=== PATIENT | male | born 1975 | race Caucasian/White ===

== ENCOUNTER 2017-04-16 09:01 | Emergency (ER) | payer BC, OTHER ==
[2017-04-16] MEDS ORDERED: Lactated Ringers 1,000 ML IV ONE ×2 (09:05)
--- NOTE | 2017-04-16 09:19 | ERPHSYRPT ---
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 He felt light- headed, generally weak, and apparently passed out briefly. No seizure. No headache, chest pain, abd pain. No V/D. No N/T/W. No hx of this in the past. He feels somewhat better after drinking po fluids and 500ns bolus per EMs. Vitals and accu check ok per EMS. Pt has no injury. No neck or back pain. Timing/Duration: today Severity: moderate Allergies/Adverse Reactions: amoxicillin Allergy (Intermediate, Verified 04/16/17 09:03) Rash Home Medications: No Home Meds 1 [facility] UD 04/16/17 [History] Hx Tetanus, Diphtheria Vaccination/Date Given: Yes (2015) Hx Influenza Vaccination/Date Given: No Hx Pneumococcal Vaccination/Date Given: No Immunizations Up to Date: Yes - Review of Systems Constitutional: No Fever, No Chills Eyes: No Symptoms Ears, Nose, & Throat: No Symptoms Respiratory: No Dyspnea Cardiac: Syncope, No Chest Pain Abdominal/Gastrointestinal: No Abdominal Pain, No Nausea, No Vomiting, No Diarrhea Skin: No Rash Neurological: No Dizziness, No Focal Weakness, No Headache, No Parasthesia All Other Systems: Reviewed and Negative - Past Medical History Pertinent Past Medical History: No - Past Surgical History Past Surgical History: No - Social History Smoking Status: Never smoker Exposure to second hand smoke: No Drug Use: none Patient Lives Alone: Yes (works [employer]) - Nursing Vital Signs Nursing Vital Signs: Initial Vital Signs Temperature 98.3 F 04/16/17 09:07 Pulse Rate 70 04/16/17 09:07 Respiratory Rate 18 04/16/17 09:07 Blood Pressure 120/77 04/16/17 09:07 O2 Sat by Pulse Oximetry 97 04/16/17 09:07 Pain Scale Pain Intensity 0 - Physical Exam General Appearance: alert Eye Exam: PERRL/EOMI Ears, Nose, Throat Exam: dry mucous membranes Neck Exam: normal inspection, non-tender, supple Respiratory Exam: normal breath sounds, lungs clear Cardiovascular Exam: regular rate/rhythm, No murmur Gastrointestinal/Abdomen Exam: soft, No tenderness, No distention, No guarding Back Exam: normal inspection, normal range of motion Extremity Exam: normal inspection, normal range of motion Neurologic Exam: alert, oriented x 3, cooperative, sensation nml, No motor deficits Skin Exam: warm, dry, No rash SpO2 Interpretation: normal SpO2: 97 Oxygen Delivery: Room Air - Course Nursing assessment & vital signs reviewed: Yes EKG Interpreted by Me: RATE (98), Sinus Rhythm, NORMAL AXIS, NORMAL INTERVALS ( QTc 4040), NORMAL QRS, NORMAL ST-T Ordered Tests: Active Orders 24 hr Category Date Time Status Clean Catch Urine Specimen STAT Care 04/16/17 09:05 Active EKG-ER Only STAT Care 04/16/17 09:06 Active Gown/Disrobe Pt STAT Care 04/16/17 09:05 Active IV Insertion STAT Care 04/16/17 09:05 Active Orthostatic Vital Signs STAT Care 04/16/17 11:00 Active BLOOD CULTURE Stat Lab 04/16/17 10:10 Received CBC W DIFF Stat Lab 04/16/17 09:05 Completed CK-Creatinine Phosphokinase Stat Lab 04/16/17 09:05 Completed CMP Stat Lab 04/16/17 09:05 Completed Lactic Acid Stat Lab 04/16/17 10:03 Completed Manual Differential NC Stat Lab 04/16/17 09:05 Completed UA W/ MICROSCOPIC Stat Lab 04/16/17 10:00 Completed Urine Triage Profile Stat Lab 04/16/17 09:40 Completed VENOUS BLOOD GAS Urgent Lab 04/16/17 09:11 Completed Medication Summary Discontinued Medications Generic Name Dose Route Start Last Admin Trade Name Freq PRN Reason Stop Dose Admin Lactated Ringer's Confirm 04/16/17 09:05 Lactated Ringers Administered 04/16/17 09:06 Dose 1,000 mls @ ud IV .STK-MED ONE Lactated Ringer's 1,000 mls @ 999 mls/hr 04/16/17 09:05 04/16/17 09:19 Lactated Ringers IV 04/16/17 10:05 999 mls/hr .Q1H1M ONE Administration Lab/Rad Data: Laboratory Result Diagrams 04/16/17 09:05 04/16/17 09:05 Laboratory Results 04/16/17 04/16/17 04/16/17 Range/Units 10:03 10:00 09:40 WBC (4.0-10.5) K/mm3 RBC (4.1-5.6) M/mm3 Hgb (12.5-18.0) gm/dl Hct (42-50) % MCV (78-100) fl MCH (26-32) pg MCHC (32-36) g/dl RDW (11.5-14.0) % Plt Count (150-450) K/mm3 MPV (6-9.5) fl Segmented Neutrophils (36.-66.) % Band Neutrophils (0.0-2.0) % Lymphocytes (Manual) (24-44) % Monocytes (Manual) (0.0-12.0) % Metamyelocytes % Myelocytes % Differential Comment Platelet Estimate (NORMAL) VBG pH (7.32-7.42) VBG pCO2 at Pat Temp (42-55) mm/Hg VBG pO2 at Pat Temp (25-40) mm/Hg VBG HCO3 (22-28) meq/L VBG O2 Sat (Ines) (95-100) VBG Base Excess (-2.0-2.0) VBG Hemoglobin VBG Carboxyhemoglobin (0.0-6.9) % T HGB POC Potassium (3.5-5.1) Sodium (136-145) mEq/L Potassium (3.5-5.1) mEq/L Chloride (98-107) mEq/L Carbon Dioxide (21-32) mEq/L Anion Gap (5-15) MEQ/L BUN (9-20) mg/dL Creatinine (0.55-1.30) mg/dl Estimated GFR ML/MIN Glucose (70-110) MG/DL Lactic Acid 1.6 (0.4-2.0) Calcium (8.5-10.1) mg/dL Total Bilirubin (0.2-1.0) mg/dL AST (15-37) U/L ALT (12-78) U/L Alkaline Phosphatase (46-116) U/L Creatine Kinase (39-308) U/L Serum Total Protein (6.4-8.2) gm/dL Albumin (3.4-5.0) g/dL Ur Collection Type VOID Urine Color YELLOW (YELLOW) Urine Appearance CLOUDY (CLEAR) Urine pH 5.0 (5-6) Ur Specific Macy 1.030 (1.005-1.025) Urine Protein 100 (Negative) Urine Ketones TRACE (NEGATIVE) Urine Blood NEGATIVE (0-5) Brady/ul Urine Nitrite NEGATIVE (NEGATIVE) Urine Bilirubin SMALL (NEGATIVE) Urine Urobilinogen 4 (0-1) mg/dL Ur Leukocyte Esterase NEGATIVE (NEGATIVE) Urine Microscopic WBC 0-2 (0-5) /HPF Ur Epithelial Cells FEW (FEW) /HPF Urine Bacteria FEW (NEGATIVE) /HPF Urine Mucus MODERATE (NEGATIVE) /HPF Urine Glucose NEGATIVE (NEGATIVE) mg/dL Urine Opiates Level NEG. (NEGATIVE) Ur Methadone NEG. (NEGATIVE) Urine Barbiturates NEG. (NEGATIVE) Ur Phencyclidine (PCP) NEG. (NEGATIVE) Urine Amphetamine NEG. (NEGATIVE) U Benzodiazepine Level NEG. (NEGATIVE) Urine Cocaine NEG. (NEGATIVE) Urine Marijuana (THC) NEG. (NEGATIVE) Specimen Received 04/16/17 1000 04/16/17 04/16/17 04/16/17 Range/Units 09:11 09:05 09:05 WBC 30.0 H* (4.0-10.5) K/mm3 RBC 4.97 (4.1-5.6) M/mm3 Hgb 14.5 (12.5-18.0) gm/dl Hct 44.2 (42-50) % MCV 88.9 (78-100) fl MCH 29.2 (26-32) pg MCHC 32.8 (32-36) g/dl RDW 14.0 (11.5-14.0) % Plt Count 210 (150-450) K/mm3 MPV 10.6 H (6-9.5) fl Segmented Neutrophils 59 (36.-66.) % Band Neutrophils 33 H (0.0-2.0) % Lymphocytes (Manual) 3 L (24-44) % Monocytes (Manual) 2 (0.0-12.0) % Metamyelocytes 2 % Myelocytes 1 % Differential Comment NORMAL Platelet Estimate NORMAL (NORMAL) VBG pH 7.38 (7.32-7.42) VBG pCO2 at Pat Temp 45 (42-55) mm/Hg VBG pO2 at Pat Temp 28 (25-40) mm/Hg VBG HCO3 26.6 (22-28) meq/L VBG O2 Sat (Ines) 64.0 L (95-100) VBG Base Excess 1.0 (-2.0-2.0) VBG Hemoglobin 15.0 VBG Carboxyhemoglobin 2.4 (0.0-6.9) % T HGB POC Potassium 3.7 (3.5-5.1) Sodium 139 (136-145) mEq/L Potassium 3.6 (3.5-5.1) mEq/L Chloride 102 (98-107) mEq/L Carbon Dioxide 26.7 (21-32) mEq/L Anion Gap 14.0 (5-15) MEQ/L BUN 19 (9-20) mg/dL Creatinine 1.70 H (0.55-1.30) mg/dl Estimated GFR 48 ML/MIN Glucose 135 H (70-110) MG/DL Lactic Acid (0.4-2.0) Calcium 8.6 (8.5-10.1) mg/dL Total Bilirubin 2.10 H (0.2-1.0) mg/dL AST 16 (15-37) U/L ALT 28 (12-78) U/L Alkaline Phosphatase 86 (46-116) U/L Creatine Kinase 144 (39-308) U/L Serum Total Protein 7.6 (6.4-8.2) gm/dL Albumin 3.7 (3.4-5.0) g/dL Ur Collection Type Urine Color (YELLOW) Urine Appearance (CLEAR) Urine pH (5-6) Ur Specific Macy (1.005-1.025) Urine Protein (Negative) Urine Ketones (NEGATIVE) Urine Blood (0-5) Brady/ul Urine Nitrite (NEGATIVE) Urine Bilirubin (NEGATIVE) Urine Urobilinogen (0-1) mg/dL Ur Leukocyte Esterase (NEGATIVE) Urine Microscopic WBC (0-5) /HPF Ur Epithelial Cells (FEW) /HPF Urine Bacteria (NEGATIVE) /HPF Urine Mucus (NEGATIVE) /HPF Urine Glucose (NEGATIVE) mg/dL Urine Opiates Level (NEGATIVE) Ur Methadone (NEGATIVE) Urine Barbiturates (NEGATIVE) Ur Phencyclidine (PCP) (NEGATIVE) Urine Amphetamine (NEGATIVE) U Benzodiazepine Level (NEGATIVE) Urine Cocaine (NEGATIVE) Urine Marijuana (THC) (NEGATIVE) Specimen Received - Progress Progress Note: 04/16/17 11:35 Pt stable. Taking po fluids. No focal neurological signs. He is not orthostatic after IVF. 1500ml IVF given. Creat, T bilil and WBC high. Likely related to heat stress. No apparent seizure. 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 Will have follow up appointment tomorrow with his primary care [employer] Tate at 10AM. Will get CBC and CMP. Counseled pt/family regarding: lab results, diagnosis, need for follow-up - Departure Time of Disposition: 11:36 Departure Disposition: Home Clinical Impression: Dehydration, Leukocytosis Condition: Stable Critical Care Time: No Referrals: AMERICA JORGE PA [Primary Care Provider] - JACI SEGURA NP [NON-STAFF PHY W/O PRIVILEGES] - Instructions: Dehydration -- Adult Additional Instructions: See FRANCES Segura at 10 AM at [facility]. Return for problems or concerns. Sip plenty of fluids and stay out of heat. No driving or operating machinery and stay with family until follow up. Get Labs: CBC and CMP in AM before appointment.
[2017-04-16 09:30] LABS: VBG CARBOXYHEMOGLOBIN 2.4 % T HGB (0.0-6.9); VBG HCO3- 26.6 meq/L (22-28); VBG POTASSIUM 3.7 (3.5-5.1); VBG pH 7.38 (7.32-7.42)
[2017-04-16 09:33] LABS: Mean Cell Volume 88.9 fl (78-100); Mean Corpuscular Hemoglobin 29.2 pg (26-32); Mean Platelet Volume 10.6 fl (6-9.5); Platelet Count 210 K/mm3 (150-450); Red Blood Count 4.97 M/mm3 (4.1-5.6)
[2017-04-16 09:53] LABS: ALBUMIN 3.7 g/dL (3.4-5.0); BILIRUBIN,TOTAL 2.1 mg/dL (0.2-1.0); Carbon Dioxide 26.7 mEq/L (21-32); Potassium 3.6 mEq/L (3.5-5.1); Total Protein 7.6 gm/dL (6.4-8.2)
[2017-04-16 09:54] LABS: BAND 33 % (0.0-2.0); Metamyelocyte 2 %; Myelocyte 1 %; Total Cells Counted 100
[2017-04-16 09:55] LABS: Platelet Estimate NORMAL (NORMAL)
[2017-04-16 10:19] LABS: Collection Type VOID
[2017-04-16 10:20] LABS: Bilirubin SMALL (NEGATIVE); Blood NEGATIVE Ery/ul (0-5); COMPLETE URINE MICROSCOPIC? YES; Glucose NEGATIVE (NEGATIVE); Leukocyte Esterase NEGATIVE (NEGATIVE)
[2017-04-16 10:27] LABS: Bacteria FEW /HPF (NEGATIVE); Epithelial Cells FEW /HPF (FEW); Mucus MODERATE /HPF (NEGATIVE); WBC 0-2 /HPF (0-5)
[2017-04-16 10:28] LABS: ADD URINE CULTURE? NO (NO)
[2017-04-16 12:02] VITALS: BP 127/84; PULSE 88; O2SAT 98
== END 2017-04-16 12:01 | disposition home or self-care (01) ==
LOC: ED 09:01
DX: E86.0 Dehydration (principal); D72.829 Elevated white blood cell count, unspecified; T67.1XXA Heat syncope, initial encounter
CPT/HCPCS: 36415; 80053; 80307; 81000; 82550; 82805; 83605; 85025; 87040; 93005; 96360; 99284